=== PATIENT | female | born 1975 | race Two or more races ===

== ENCOUNTER 2020-08-09 10:03 | Inpatient (IN) | payer OTHER ==
[2020-08-09 11:12] VITALS: BMI 39.3
[2020-08-09] MEDS ORDERED: ACETAMINOPHEN 325 MG TABLET (FP) PO PRN ×2 (12:02)
[2020-08-09] MEDS ORDERED: MAGNESIUM HYDROX 2400MG/30ML ORAL SUSPENSION 30 ML CUP PO PRN (12:02)
[2020-08-09] MEDS ORDERED: MAG HYDROX/AL HYDROX/SIMETH 30 ML UNIT-DOSE CUP PO PRN (12:02)
[2020-08-09] MEDS ORDERED: NICOTINE POLACRILEX 2 MG GUM BUC PRN (12:02)
[2020-08-09] MEDS ORDERED: MENTHOL/PHENOL 1 EACH UD MM PRN (12:02)
[2020-08-09] MEDS ORDERED: MAGNESIUM CITRATE 300 ML BOTTLE PO PRN (12:02)
[2020-08-09] MEDS ORDERED: ONDANSETRON *ODT* 4 MG TABLET SL PRN (12:02)
[2020-08-09] MEDS ORDERED: chlordiazePOXIDE HCL 25 MG CAPSULE PO PRN (12:02)
[2020-08-09] MEDS ORDERED: BISMUTH SUBSALICYLATE 262 MG/15 ML BTL PO PRN (12:04)
[2020-08-09] MEDS ORDERED: ALBUTEROL SO4 HFA INHALER IH SCH (12:15)
[2020-08-09] MEDS ORDERED: ALBUTEROL SO4 HFA INHALER IH PRN (12:27)
[2020-08-09] MEDS: NICOTINE 21 MG/24 HOURS TOPICAL PATCH TD SCH (13:33)
[2020-08-09] MEDS: PRENATAL VITAMINS W/ FOLIC ACID TABLET (FP) PO SCH (13:33)
[2020-08-09] MEDS: hydrOXYzine PAMOATE 25 MG CAPSULE (FP) PO SCH ×3 (13:34→22:53)
[2020-08-09] MEDS: chlordiazePOXIDE HCL 25 MG CAPSULE PO SCH ×3 (13:34→22:53)
[2020-08-09 14:17] LABS: HEMATOCRIT 36.7 % (32.4-45.2); HEMOGLOBIN 12.3 GM/dL (10.7-15.3); MCH 30.5 pg (25.7-33.7); MCHC 33.6 g/dl (32.0-36.0); MEAN CELL VOLUME 90.6 fl (80-96); MEAN PLT VOLUME 8.9 fl (7.5-11.1); PLATELET COUNT 220 K/MM3 (134-434); RBC 4.05 M/mm3 (3.60-5.2); RDW 13.9 % (11.6-15.6)
[2020-08-09 14:20] LABS: POTASSIUM 4.1 mmol/L (3.5-5.1)
[2020-08-09 14:23] LABS: ALBUMIN 3.6 g/dl (3.4-5.0); CALCIUM 9.4 mg/dL (8.5-10.1)
[2020-08-09 14:25] LABS: CREATININE 0.7 mg/dL (0.55-1.3)
[2020-08-09 14:28] LABS: BILIRUBIN,TOTAL 0.7 mg/dL (0.2-1); TOT PROT 6.8 g/dl (6.4-8.2)
[2020-08-09] MEDS: METHOCARBAMOL 500 MG TABLET PO PRN (18:07)
[2020-08-09] MEDS ORDERED: BUDESONIDE/FORMETEROL FUMARATE 80/4.5 mcg INHALER IH SCH (22:00)
[2020-08-09] MEDS: MELATONIN 5 MG TABLETS PO SCH (22:53)
[2020-08-09] MEDS: THIAMINE HCL 100 MG TABLET (FP) PO SCH (22:54)
[2020-08-09] MEDS: FLUTICASONE PROP 0.05% 16 GM NASAL SPRAY NS SCH (22:54)
[2020-08-09] MEDS: BUDESONIDE/FORMETEROL FUMARATE 80/4.5 mcg INHALER IH SCH (22:57)
[2020-08-10] MEDS ORDERED: METHADONE HCL 10 MG TABLET ONE (04:20)
[2020-08-10] MEDS ORDERED: METHADONE HCL 5 MG TABLET ONE (04:21)
[2020-08-10] MEDS: hydrOXYzine PAMOATE 25 MG CAPSULE (FP) PO SCH ×6 (05:44→22:30)
[2020-08-10] MEDS: METHADONE 30 MG, METHADONE 5 MG PO SCH (05:45)
[2020-08-10] MEDS ORDERED: METHADONE HCL 10 MG TABLET PO SCH ×2 (06:00)
[2020-08-10] MEDS: chlordiazePOXIDE HCL 25 MG CAPSULE PO SCH ×4 (07:06→23:51)
[2020-08-10] MEDS: METHOCARBAMOL 500 MG TABLET PO PRN ×2 (10:15→22:30)
[2020-08-10] MEDS: PRENATAL VITAMINS W/ FOLIC ACID TABLET (FP) PO SCH (10:15)
[2020-08-10] MEDS: FLUTICASONE PROP 0.05% 16 GM NASAL SPRAY NS SCH ×2 (10:15→22:32)
[2020-08-10] MEDS: IBUPROFEN 400 MG TABLET (FP) PO PRN ×2 (10:16→22:30)
[2020-08-10] MEDS: BUDESONIDE/FORMETEROL FUMARATE 80/4.5 mcg INHALER IH SCH ×2 (10:16→22:32)
[2020-08-10] MEDS: NICOTINE 21 MG/24 HOURS TOPICAL PATCH TD SCH (10:16)
[2020-08-10] MEDS: THIAMINE HCL 100 MG TABLET (FP) PO SCH (22:30)
[2020-08-10] MEDS: MELATONIN 5 MG TABLETS PO SCH (22:30)
[2020-08-11] MEDS ORDERED: METHADONE HCL 10 MG TABLET ONE (04:59)
[2020-08-11] MEDS ORDERED: METHADONE HCL 5 MG TABLET ONE (04:59)
[2020-08-11] MEDS: METHADONE 30 MG, METHADONE 5 MG PO SCH (06:41)
[2020-08-11] MEDS: hydrOXYzine PAMOATE 25 MG CAPSULE (FP) PO SCH ×2 (06:42→10:45)
[2020-08-11] MEDS: chlordiazePOXIDE HCL 25 MG CAPSULE PO SCH ×4 (06:42→22:18)
[2020-08-11] MEDS: BUDESONIDE/FORMETEROL FUMARATE 80/4.5 mcg INHALER IH SCH ×2 (10:10→22:31)
[2020-08-11] MEDS: FLUTICASONE PROP 0.05% 16 GM NASAL SPRAY NS SCH ×2 (10:10→22:16)
[2020-08-11] MEDS: PRENATAL VITAMINS W/ FOLIC ACID TABLET (FP) PO SCH (10:10)
[2020-08-11] MEDS: NICOTINE 21 MG/24 HOURS TOPICAL PATCH TD SCH (10:10)
[2020-08-11] MEDS: METHOCARBAMOL 500 MG TABLET PO PRN (10:11)
[2020-08-11] MEDS ORDERED: SIMETHICONE 80 MG TAB.CHEW (FP) PO PRN (14:08)
[2020-08-11] MEDS: LIDOCAINE 5% TOPICAL PATCH TP SCH (14:59)
[2020-08-11] MEDS: hydrOXYzine PAMOATE 25 MG CAPSULE (FP) PO PRN ×2 (17:54→22:17)
[2020-08-11] MEDS: METHOCARBAMOL 750 MG TAB PO PRN ×2 (17:56→22:18)
[2020-08-11] MEDS: MELATONIN 5 MG TABLETS PO SCH (22:16)
[2020-08-11] MEDS: THIAMINE HCL 100 MG TABLET (FP) PO SCH (22:16)
[2020-08-11] MEDS: LIDOCAINE PATCH REMOVAL MC SCH (22:31)
[2020-08-12] MEDS ORDERED: chlordiazePOXIDE HCL 10 MG CAPSULE PO PRN
[2020-08-12] MEDS ORDERED: METHADONE HCL 10 MG TABLET ONE (04:14)
[2020-08-12] MEDS ORDERED: METHADONE HCL 5 MG TABLET ONE (04:14)
[2020-08-12] MEDS: chlordiazePOXIDE HCL 10 MG CAPSULE PO SCH ×5 (06:14→22:06)
[2020-08-12] MEDS: METHADONE 30 MG, METHADONE 5 MG PO SCH (06:15)
[2020-08-12] MEDS: METHOCARBAMOL 750 MG TAB PO PRN ×3 (06:56→22:06)
[2020-08-12] MEDS: BUDESONIDE/FORMETEROL FUMARATE 80/4.5 mcg INHALER IH SCH ×2 (10:35→22:05)
[2020-08-12] MEDS: PRENATAL VITAMINS W/ FOLIC ACID TABLET (FP) PO SCH (10:36)
[2020-08-12] MEDS: NICOTINE 21 MG/24 HOURS TOPICAL PATCH TD SCH (10:36)
[2020-08-12] MEDS: LIDOCAINE 5% TOPICAL PATCH TP SCH (10:36)
[2020-08-12] MEDS: FLUTICASONE PROP 0.05% 16 GM NASAL SPRAY NS SCH ×2 (10:37→22:05)
[2020-08-12] MEDS: hydrOXYzine PAMOATE 25 MG CAPSULE (FP) PO PRN ×3 (10:42→22:04)
[2020-08-12] MEDS: IBUPROFEN 400 MG TABLET (FP) PO PRN (13:19)
[2020-08-12] MEDS: NITROFURANTOIN MACROCRYSTAL 50 MG CAPSULE (FP) PO SCH (17:37)
[2020-08-12] MEDS: MELATONIN 5 MG TABLETS PO SCH (22:04)
[2020-08-12] MEDS: THIAMINE HCL 100 MG TABLET (FP) PO SCH (22:05)
[2020-08-12] MEDS: LIDOCAINE PATCH REMOVAL MC SCH (22:05)
[2020-08-13] MEDS: NITROFURANTOIN MACROCRYSTAL 50 MG CAPSULE (FP) PO SCH ×2 (00:38→05:55)
[2020-08-13] MEDS ORDERED: METHADONE HCL 10 MG TABLET ONE (04:34)
[2020-08-13] MEDS ORDERED: METHADONE HCL 5 MG TABLET ONE (04:35)
[2020-08-13] MEDS: chlordiazePOXIDE HCL 10 MG CAPSULE PO SCH ×2 (05:54→06:56)
[2020-08-13] MEDS: METHADONE 30 MG, METHADONE 5 MG PO SCH (05:54)
[2020-08-13] MEDS: METHOCARBAMOL 750 MG TAB PO PRN (05:59)
[2020-08-13] MEDS: BUDESONIDE/FORMETEROL FUMARATE 80/4.5 mcg INHALER IH SCH (09:34)
[2020-08-13] MEDS: PRENATAL VITAMINS W/ FOLIC ACID TABLET (FP) PO SCH (09:34)
[2020-08-13] MEDS: NICOTINE 21 MG/24 HOURS TOPICAL PATCH TD SCH (09:35)
[2020-08-13] MEDS: FLUTICASONE PROP 0.05% 16 GM NASAL SPRAY NS SCH (09:35)
[2020-08-13] MEDS: LIDOCAINE 5% TOPICAL PATCH TP SCH (09:36)
[2020-08-13 09:46] VITALS: BP 102/65; PULSE 72; TEMP 97.1
[2020-08-14] MEDS ORDERED: chlordiazePOXIDE HCL 10 MG CAPSULE PO ONE (05:00)
== END 2020-08-13 10:10 | disposition home or self-care (01) | DRG 897 ==
LOC: YASAS 10:03 → Y3N 11:19
PROVIDERS: ADMIT Allergy & Immunology; ATTEND Allergy & Immunology
PROC: HZ2ZZZZ Detoxification Services for Substance Abuse Treatment (ICD-10-PCS; principal; 2020-08-09)
DX: F10.230 Alcohol dependence with withdrawal, uncomplicated (principal); F11.20 Opioid dependence, uncomplicated; F13.20 Sedative, hypnotic or anxiolytic dependence, uncomplicated; F17.210 Nicotine dependence, cigarettes, uncomplicated; F19.24 Other psychoactive substance dependence with psychoactive substance-induced mood disorder; F41.9 Anxiety disorder, unspecified; F41.0 Panic disorder [episodic paroxysmal anxiety]; G47.00 Insomnia, unspecified; J44.9 Chronic obstructive pulmonary disease, unspecified; N96 Recurrent pregnancy loss; E66.9 Obesity, unspecified; Z68.39 Body mass index [BMI] 39.0-39.9, adult
CPT/HCPCS: 36415; 80053; 81025; 85027; 86780; 93005; 93010; C9803; U0003